=== PATIENT | female | born 1990 | race Caucasian/White ===

== ENCOUNTER 2017-12-10 13:00 | Emergency (ER) | payer OTHER ==
[~2017-12-10] VITALS: Ht 160 cm; Wt 93.0 kg
[2017-12-10 13:06] VITALS: Ht 160 cm; Wt 93.0 kg
[2017-12-10 13:28] LABS: BASOPHIL % 0.6 % (0-2); PLATELET COUNT 243 x10^3mcL (130-400); RED CELL DISTRIBUTION WIDTH 13.9 % (11.5-14.5)
[2017-12-10 13:29] LABS: CALCIUM 8.4 mg/dL (8.5-10.1); CARBON DIOXIDE 24.9 mmol/L (21-32); CHLORIDE SERUM 104 mmol/L (98-107); CREATININE SERUM 0.8 mg/dL (0.6-1.0); GFR1 > 60 mL/min; GLUCOSE SERUM 113 mg/dL (74-106); POTASSIUM SERUM 3.8 mmol/L (3.5-5.1); SODIUM SERUM 138 mmol/L (136-145)
[2017-12-10 13:34] LABS: ALKALINE PHOSPHATASE 98 U/L (46-116); ALT/SGPT 43 U/L (14-59); AST/SGOT 37 U/L (15-37); BILIRUBIN TOTAL 0.35 mg/dL (0.20-1.00); MAGNESIUM 1.8 mg/dL (1.8-2.4); TOTAL PROTEIN, SERUM 7.9 g/dL (6.4-8.2)
[2017-12-10 13:39] LABS: ALBUMIN 3.2 g/dL (3.4-5.0)
[2017-12-10 15:31] LABS: AMPHETAMINE QUAL UR NONE DETECTED (See below)
[2017-12-10 16:17] VITALS: BP 98/62
== END 2017-12-10 16:17 | disposition home or self-care (01) ==
LOC: ED 13:00
PROVIDERS: Emergency Medicine
DX: R56.9 Unspecified convulsions (principal); R11.0 Nausea
CPT/HCPCS: G0480; J2405